=== PATIENT | male | born 1945 | race Caucasian/White ===

== ENCOUNTER 2016-06-05 01:33 | Inpatient (IN) | payer OTHER ==
[~2016-06-05] VITALS: Ht 180.3 cm; Wt 90.3 kg
[~2016-06-05 01:33] MED LIST: TRAMADOL HCL50 M1 PO
--- NOTE | 2016-06-05 10:10 | Admission Core Measures ---
Admission Meds I reviewed the following Meds: Current Medications Sig/Dora Start time Last Medication Dose Stop Time Status Admin Acetaminophen 975 MG ONCE 06/05 NR (Tylenol) 06/05 2358 Cefazolin Sodium 2,000 MG ONCE 06/05 NR (Kefzol-Ancef Inj) 06/05 2358 Oxycodone HCl 10 MG ONCE 06/05 0000 NR (Roxicodone) 06/05 2358 Ropivacaine 500 ML ONCE ONE 06/05 08 AC (NAROPIN) 06/07 0209 ON-Q Ball 1 BAG Acute Coronary Syndrome Inclusion Criteria ACS Diagnosis No Inpatient Core Measures LDL Reminder: If No, please order W/I first 24hr of stay Congestive Heart Failure Inclusion Criteria CHF Diagnosis No Cerebrovascular accident Inclusion Criteria CVA/TIA Diagnosis No Inpatient Core Measures Bedside Swallow Eval Reminder: If BSE failed, place ST order Antithrombotic Reminder: Order Antithrombotic Medication by end of day 2 Antithrombotic Reminder: Document Reason Antithrombotic Not ordered by end of day 2 AFIB/Flutter Reminder: If Present, add to problem list AFIB/Flutter Reminder: Order Anticoag Medication for pts with AFIB/Flutter Atherosclerosis Reminder: If Present, add to problem list LDL Reminder: If No, please order W/I first 24hr of stay PT Order Reminder: If No, please order Venous thromboembolism Inpatient Core Measures VTE Risk Factors: Age > 40, Surgery VTE Prophylaxis Ordered Inpt Mech & Pharm No Mech VTE prophylaxis d/t No contraindications No VTE Pharm Prophylaxis d/t No contraindications Inclusion Criteria - Per Current guidelines, there needs to be overlap - treatment for the first 5 days of Warfarin therapy. - Parenteral Anticoagulation (IV or SC) needs to be - given along with Warfarin therapy. VTE Diagnosis No VTE Type NONE VTE Confirmed by (Test) NONE Problem List As ranked by this Provider includes Assessment & Plan 1. Unilateral primary osteoarthritis, right knee HOME MEDS Home Med List Tramadol HCl 50 MG TABLET 1 TAB PO EVERY 6 PRN PAIN (Reported)
[2016-06-05] MEDS ORDERED: MIRALAX17 G1 PO (10:13)
[2016-06-05] MEDS ORDERED: COLACE100 M1 PO (10:13)
[2016-06-05] MEDS ORDERED: ASPIRIN EC325 M2 PO (10:13)
[2016-06-05] MEDS ORDERED: PRILOSEC OTC20 M1 PO (10:13)
[2016-06-05] MEDS ORDERED: MS CONTIN30 M1 PO (10:13)
[2016-06-05] MEDS ORDERED: DILAUDID4 M1 PO (10:13)
--- NOTE | 2016-06-05 10:17 | Patient Discharge Instructions ---
Discharge Instructions General Discharge Information You were seen/treated for: Right knee pain You had these procedures: Right total knee replacement Watch for these problems: Increasing pain, redness, warmth, swelling. Drainage of any type from incision. Inability to bear weight on right leg. Fever greater than 101.5. Do not soak the wound: Yes No bath, but you may shower: Yes Other wound care: Keep wound clean and dry Special Instructions: Incision: Dry dressing. May shower. No baths. No ointments of any kind. Ice as needed. Bowel regimen: Colace and or MiraLAX Weight-bearing as tolerated Follow-up with Dr. Bernal in 6 weeks. Call office for fevers greater than 101.5, excessive drainage or inability to bear weight on operative extremity. Visiting nurse will change dressing. Diet Continue normal diet: Yes Recommended Diet: Regular Additional DIET Information: Advance as tolerated Activity Full Activity/No Limits: No Activity Self Limited: Yes Pounds, do NOT lift more than: 10 Additional ACTIVITY Info: Weight-bear as tolerated Acute Coronary Syndrome Inclusion Criteria At DC or during hospital stay patient has or had the following: ACS DIAGNOSIS No Discharge Core Measures Meds if any: Prescribed or Continued at Discharge Meds if any: NOT Prescribed or Continued at Discharge Congestive Heart Failure Inclusion Criteria At DC or during hospital stay patient has or had the following: CHF DIAGNOSIS No Discharge Core Measures Meds if any: Prescribed or Continued at Discharge Meds if any: NOT Prescribed or Continued at Discharge Cerebrovascular accident Inclusion Criteria At DC or during hospital stay patient has or had the following: CVA/TIA Diagnosis No Discharge Core Measures Meds if any: Prescribed or Continued at Discharge Meds if any: NOT Prescribed or Continued at Discharge Venous thromboembolism Inclusion Criteria VTE Diagnosis No VTE Type NONE VTE Confirmed by (Test) NONE Discharge Core Measures - Per Current guidelines, there needs to be overlap - treatment for the first 5 days of Warfarin therapy. - If discharged on Warfarin prior to 5 days of - overlap therapy, the patient will need to be - assessed for post discharge needs including - *Post discharge parental anticoagulation - *Warfarin and/or parental anticoagulation education - *Follow up date to check INR post discharge At least 5 days overlap therapy as Inpatient No Meds if any: Prescribed or Continued at Discharge Note: Overlap Therapy is Warfarin and Anticoagulant Meds if any: NOT Prescribed or Continued at Discharge
--- NOTE | 2016-06-05 10:19 | Surgical Discharge Summary ---
Visit Information Visit Dates Admission Date: 06/05/16 Discharge Date: 06/08/2016 History of Present Illness Chief Complaint: Right knee pain Medical History Isolation History: Standard Surgical History Pertinent Surgical History: non-contributory Review of Systems: See H&P Hospital Course Course Attending Physician: ADAM TRAN MD Primary Care Physician: JOSE DAVID SUTHERLAND,[facility] Course: Patient was admitted to the hospital on 06/05/2016 for an elective right total knee replacement. He tolerated the procedure well. He was transferred to a general surgical floor. His diet was advanced and tolerated. His vitals were stable and within normal limits. He voided spontaneously. His pain was well controlled. He was evaluated and treated by physical therapy. He was deemed appropriate for discharge. Allergies: Coded Allergies: No Known Allergies (05/31/16) Disposition Summary Disposition Principal Diagnosis: Right knee unilateral primary osteoarthritis Additional Diagnosis: None Discharge Disposition: home health services Discharge Instructions General Discharge Information Code Status: Full Code Patient's Diet: Regular, advance as tolerated Patient's Activity: Weight-bear as tolerated on right leg Follow-Up Instructions/Appts: Incision: Dry dressing. May shower. No baths. No ointments of any kind. Ice as needed. Bowel regimen: Colace and or MiraLAX Weight-bearing as tolerated Follow-up with Dr. Tran in 6 weeks. Call office for fevers greater than 101.5, excessive drainage or inability to bear weight on operative extremity. Visiting nurse will change dressing. Medications at Discharge Discharge Medications: Stop taking the following medications: Tramadol HCl (Tramadol HCl) 50 MG TABLET ORAL EVERY 6 as needed for PAIN Start taking the following new medications: Docusate Sodium (Colace) 100 MG CAPSULE 1 Capsule ORAL TWICE DAILY Qty = 14 No Refills Instructions: DISCONTINUE USE IF YOU DEVELOP LOOSE STOOL OR DIARRHEA Polyethylene Glycol 3350 (Miralax) 17 GRAM POWD.PACK 1 Packet ORAL DAILY Qty = 7 No Refills Instructions: dissolve in water, DISCONTINUE USE IF YOU DEVELOP LOOSE STOOL OR DIARRHEA Aspirin (Ecotrin*) 325 MG TABLET.DR 1 Tablet ORAL TWICE DAILY Qty = 60 No Refills Omeprazole Magnesium (Prilosec Otc) 20 MG TABLET.DR 1 Tablet ORAL DAILY Qty = 30 No Refills Hydromorphone HCl (Dilaudid) 2 MG TABLET 1-2 Tablet ORAL EVERY 4-6 HOURS as needed for PAIN Qty = 36 No Refills Morphine Sulfate (Ms Contin) 15 MG TABLET.ER 1 Tablet ORAL THREE TIMES DAILY Qty = 9 No Refills
[2016-06-05 14:00] VITALS: BP 120/7
--- NOTE | 2016-06-05 15:26 | PN- Orthopedic ---
Subjective Subjective: POST-OP NOTE: Reports right knee discomfort is exactly what he expected. Already out of bed with PT ambulating and now sitting in chair. No dizziness. No shortness of breath. No chest pains. Tolerating clears. No nausea. Due to void this afternoon. Objective Vital Signs and I&Os vitals stable (pacu sheet reviewed) Physical Exam: General - alert & oriented x 3. out of bed to chair. no acute distress. Lungs - clear bilaterally. no w/r/r. Cardiac - s1s2. reg. Abdomen - soft. nontender. Extremities - warm bilaterally. right knee dressing c/d/i. on q in place. calves soft and nontender. nvi. Assessment/Plan Assessment/Plan This 70 year old white male is POD#0 s/p right total knee replacement advance diet as tolerated d/c iv fluids in the morning as long as voiding well continue PT, wbat on q in place, until POD#2 pain control as ordered antonio-operative ancef x 2 doses asa bid - dvt ppx due to void this afternoon will d/w Core Measures/Miscellaneous Venous Thromboembolism VTE Risk Factors: Age > 40, Surgery VTE Contraindications: No Contraindications VTE Prophylaxis Ordered Inpt: Mech & Pharm VTE Diagnosis: No VTE Type: NONE VTE Confirmed by (Test): NONE Beta Nelsy Is Beta Nelsy a Home Med? No Antibiotics Is Patient on Antibiotics? Yes If Yes: prophylaxis
--- NOTE | 2016-06-05 16:15 | Operative Report ---
Operative/Inv Procedure Report Surgery Date: 06/05/16 Name of Procedure: 1. Right total knee replacement 2. Left knee cortisone injection Pre-Operative Diagnosis: Primary bilateral knee DJD Post-Operative Diagnosis: Same Estimated Blood Loss: 50ml to 100ml Surgeon/Wind Turbine Mechanical Engineer: CHELSEA SUTHERLAND,ADAM Perdomo Anesthesia: block Operative/Procedure Note Note: Description of Procedure: The patient was taken to the operating room and positively identified. After induction of spinal anesthesia and administration of appropriate pre-operative antibiotics, the patient was positioned supine on the operating room table and all bony prominences were well padded. The left knee was prepped sterilely and injected with a mixture of 2 mL of Depo-Medrol and 8 mL of half percent Marcaine. A Band-Aid was placed over the injection site. Attention was then turned to the contralateral limb. A well-padded pneumatic tourniquet was placed on the right upper thigh. After performing a surgical timeout, the right lower extremity was prepped and draped in the usual sterile fashion. After exsanguination with Esmarch the tourniquet was inflated to 250mm of mercury. A standard medial parapatellar approach was made to the knee. This was carried down through skin and subcutaneous tissue to the level of the fascia. Meticulous hemostasis was maintained with Bovie electrocautery. The extensor mechanism and patellar retinaculum were opened sharply and the patella was everted. The infrapatellar fat was resected in order to improve exposure. Osteophytes were trimmed from the patella and femoral condyles and the patella was re-everted and tucked laterally. A medial release was performed and the cruciate ligaments were resected. The tibia was then subluxed anteriorly. Utilizing the appropriate extra-medullary guide, the proximal tibia was trimmed perpendicular to the long axis of the tibial shaft. Attention was then turned to the femur. After opening the medullary canal, the distal femoral cut was made in 6 degrees of valgus utilizing the appropriate intra-medullary guide. The extension gap was checked and found to be appropriate. The femur was then sized and the remainder of the femoral cuts were made with a size 6 4-in-1 femoral cutting guide. The flexion gap was checked and found to be symmetric and appropriate. The knee was then trialed with a size 6 femoral component, a size 6 tibial component and a size 13 mm polyethylene insert. The patella was trimmed to accept an A 38 patella. This yielded excellent range of motion, stability and patellar tracking. All trial components were removed and the knee was copiously irrigated with sterile saline. All components were cemented into place with Susan Simplex cement. All the components were of the Honk Triathlon knee system of the above stated sizes. The knee was again irrigated after cementation. The extensor mechanism and patellar retinaculum were repaired using interrupted #1 vicryl suture. The skin was re-approximated with 2-0 vicryl and closed with nati. A sterile dressing was applied, the tourniquet was deflated, the patient was awakened and taken to the recovery room in satisfactory condition.
[2016-06-05 18:00] VITALS: BP 118/64
[2016-06-05 23:07] VITALS: BP 112/62
[2016-06-06 07:50] VITALS: BP 118/72
[2016-06-06 08:01] LABS: ABSOLUTE BASOPHIL COUNT 0 /CUMM (0.0-0.2); ABSOLUTE EOSINOPHIL COUNT 0 /CUMM (0.0-0.7); ABSOLUTE GRANULOCYTE CT 13.6 /CUMM (1.4-6.5); ABSOLUTE LYMPH COUNT 0.6 /CUMM (1.2-3.4); BASOPHIL % 0.2 % (0.0-2.0); EOSINOPHIL % 0 % (0-5); GRANULOCYTE % 89.4 % (42.2-75.2); HEMATOCRIT 37.6 % (42-52); MEAN CORPUSCULAR HGB 30.6 PG (27.0-31.0); MEAN CORPUSCULAR HGB CONC 34.5 G/DL (33.0-37.0); MEAN CORPUSCULAR VOLUME 88.7 FL (80.0-94.0); MEAN PLATELET VOLUME 7.6 FL (7.4-10.4); PLATELET COUNT 240 /CUMM (130-400); RBC DISTRIBUTION WIDTH 13.7 % (11.5-14.5); RED BLOOD CELL CT 4.24 /CUMM (4.70-6.10)
--- NOTE | 2016-06-06 09:23 | PN- Orthopedic ---
Subjective Subjective: t. reports having pain now and overnight, however was able to participate with PT this morning Otherwise has no complaints. Objective Vital Signs and I&Os Vital Signs Date Time Temp Pulse Resp B/P Pulse O2 O2 Flow FiO2 Ox Delivery Rate 06/06 0750 98.9 89 20 118/72 93 Room Air 06/05 2307 99.2 86 20 112/62 95 06/05 1800 98.2 80 20 118/64 95 Room Air 06/05 1400 98.8 84 120/7 95 Room Air Intake & Output 06/06 1600 06/06 0800 06/06 0000 06/05 1600 06/05 0800 06/05 0000 Intake Total 600 225 Output Total 375 475 Balance 225 -250 Intake, IV 600 225 Output, Urine 375 475 Patient 199 lb Weight Alert, no didtress, appropriate Lungs clear COR regular Abdominal exam is benign RLE with Seven bandage over extremity , intact. Has full ROM , OnQ pump intact, insertion site is clean. Good capillary refill distally No calf tenderness. Assessment/Plan Assessment/Plan s/p RTKA POD#1 Pain issue.He did not received oral pain meds. I discussed with pt. and nurse to initiate oral Dilaudid. Will add oral MS Contin bid as per surgeon's plan. No signs of infection Mobilze with PT I anticipate removal of On Q pump tomorrow. Tolerating solid diet , will d/c IVF Core Measures/Miscellaneous Venous Thromboembolism VTE Risk Factors: Age > 40, Surgery VTE Contraindications: No Contraindications VTE Prophylaxis Ordered Inpt: Mech & Pharm VTE Diagnosis: No VTE Type: NONE VTE Confirmed by (Test): NONE Beta Nelsy Is Beta Nelsy a Home Med? No Antibiotics Is Patient on Antibiotics? No If Yes: prophylaxis
[2016-06-06 09:47] LABS: WHITE BLOOD CELL COUNT 15.2 /CUMM (4.8-10.8)
[2016-06-06 12:00] VITALS: BP 112/68
[2016-06-06 14:34] VITALS: BP 124/72
[2016-06-06 16:36] VITALS: BP 128/72
[2016-06-06 22:49] VITALS: BP 128/74
--- NOTE | 2016-06-07 07:15 | PN- Orthopedic ---
Subjective Subjective: Patient reporting increasing pain to posterior aspect of right knee. Denies chest pain, shortness of breath and difficulty breathing. Denies nausea and vomiting. Has been voiding without difficulty. Has yet to move bowels. Objective Vital Signs and I&Os Vital Signs Date Time Temp Pulse Resp B/P Pulse O2 O2 Flow FiO2 Ox Delivery Rate 06/07 0734 99.5 65 20 136/80 95 Room Air 06/06 2249 99.9 78 20 128/74 95 03/02 1636 100.1 80 20 128/72 95 03/02 1434 98.8 74 20 124/72 98 Room Air 06/06 1200 98.4 84 20 112/68 94 Room Air Intake & Output 06/07 1600 06/07 0800 06/07 0000 06/06 1600 06/06 0800 06/06 0000 Intake Total 761 198 4345 600 225 Output Total 1225 525 750 375 475 Balance -985 -45 420 225 -250 Intake, IV 450 600 225 Intake, Oral 240 480 720 Number 0 Bowel Movements Output, Urine 1225 525 750 375 475 Physical Exam: General: Alert and oriented x3, no acute distress Cardiac: RRR, s1s2 Pulmonary: CTA bilaterally Abdomen: NOn-tender, non-distended Extremities: Moves all extremities, distal sensation intact. Motor 5/5 in plantar and dorsi flexion. Skin warm and well perfused. DP pulses palpable bilaterally. Right calf with swelling and tenderness to palpation Surgical site: Right knee, dressing changed, antonio-incisional bruising noted, skin edges well approximated, no drainage Assessment/Plan Assessment/Plan This is a 70 year old male, POD 2, s/p right total knee replacement -Continue current pain regimen -Ultrasound to be done bilateral lower extremities to r/o dvt -Consider d/c to home pending u/s Core Measures/Miscellaneous Venous Thromboembolism VTE Risk Factors: Age > 40, Surgery VTE Contraindications: No Contraindications VTE Diagnosis: No VTE Type: NONE VTE Confirmed by (Test): NONE Beta Nelsy Is Beta Nelsy a Home Med? No Antibiotics Is Patient on Antibiotics? No If Yes: prophylaxis
[2016-06-07 07:34] VITALS: BP 136/80
--- NOTE | 2016-06-07 09:13 | NUR ---
NURSING NOTE: PATIENT LEFT FLOOR VIA STRETCHER WITH DISTRIBUTION FOR ULTRASOUND. PATIENT A/OX3, PAIN 5/10 WITH MEDICATION GIVEN. DRSG TO R KNEE CDI. RIGHT CALF SWELLING, WARMTH AND PAINFUL TO TOUCH NOTED. WILL AWAIT RETURN.
--- NOTE | 2016-06-07 09:50 | NUR ---
NURSING NOTE: PATIENT RETURNED TO FLOOR VIA STRTCHER WITH DISTRIBUTION FROM ULTRASOUND. PATIENT A/OX3, PAIN 6/10, ICE PLACED. WILL CONTINUE TO MONITOR.
--- NOTE | 2016-06-07 09:51 | ULTRASOUND REPORT ---
EXAMINATION: US TRIPLEX LOWER EXTREMITY, BILATERAL CLINICAL INFORMATION: Calf swelling and tenderness postoperative COMPARISON: None TECHNIQUE: Color-flow triplex imaging with spectral analysis and compression Doppler were performed on the bilateral lower extremities. FINDINGS: Respiratory variation, normal compression and augmented flow are noted throughout the bilateral lower extremities. The visualized common femoral vein, superficial femoral vein, profunda femoral vein, popliteal vein and midcalf peroneal and posterior tibial venous segments show no evidence of deep venous thrombosis. There is no Billings's cyst. There is calf edema noted. IMPRESSION: No evidence of deep venous thrombosis involving the bilateral lower extremities.
--- NOTE | 2016-06-07 11:47 | NUR ---
NURSING NOTE: PATIENT C/O PAIN 12/15 TO R THIGH. PATIENT WAS ATTEMPTING TO GET OUT OF BED WITH PT AT TIME. STATED HE COULD NOT BARE WEIGHT TO THE LEG HE WANTED TO, DUE TO THE PAIN IN THE THIGH. PATIENT ALSO STATED IT FELT NUMB. THE THIGH WAS COLD TO TOUCH AND PATIENT HAD ICE PACK ON THE AREA PRIOR. PATIENT EDUCATED ABOUT 20 MINS ON 20 MINS OFF FOR ICE PACK AND GIVEN PAIN MEDS PER ORDER. SURGICAL CLARI MORALES NOTIFIED. WILL CONTINUE TO MONITOR.
[2016-06-07] MEDS ORDERED: MS CONTIN15 M2 PO (14:11)
[2016-06-07] MEDS ORDERED: DILAUDID2 M1 PO (14:11)
[2016-06-07 15:01] VITALS: BP 126/64
[2016-06-07 23:03] VITALS: BP 118/60
[2016-06-08 07:52] VITALS: BP 130/78
--- NOTE | 2016-06-08 09:51 | PN- Orthopedic ---
Subjective Subjective: No complaints. Reports pain controlled. Out of bed with PT without difficulty. No dizziness. No shortness of breath. Voiding well. Venous ultrasound study negative for dvts yesterday (b/l legs). Objective Vital Signs and I&Os Vital Signs Date Time Temp Pulse Resp B/P Pulse O2 O2 Flow FiO2 Ox Delivery Rate 06/08 0752 99.1 69 18 130/78 96 Room Air 06/07 2303 99.9 68 20 118/60 93 Room Air 06/07 1501 100.0 68 20 126/64 94 Room Air Intake & Output 06/08 1600 06/08 0800 06/08 0000 06/07 1600 06/07 0800 06/07 0000 Intake Total 200 200 900 240 480 Output Total 261 467 6030 525 Balance 200 -200 300 -985 -45 Intake, Oral 200 200 900 240 480 Output, Urine 313 756 2128 525 Physical Exam: General - alert & oriented x 3. comfortable. no acute distress. Lungs - clear bilaterally. no w/r/r. Cardiac - s1s2. reg. Abdomen - soft nontender. Extremities - warm bilaterally. no c/c/e. right knee incision well approximated with nati. no erythema or exudates. nvi. Assessment/Plan Assessment/Plan This is a 70 year old male POD#3 s/p right total knee replacement, venous ultrasound study negative for dvts b/l legs yesterday tolerating diet pain controlled oob/ambulating with rolling walker continue PT dressing changed asa - dvt ppx d/c home today will d/w Core Measures/Miscellaneous Venous Thromboembolism VTE Risk Factors: Age > 40, Surgery VTE Contraindications: No Contraindications VTE Diagnosis: No VTE Type: NONE VTE Confirmed by (Test): NONE Beta Nelsy Is Beta Nelsy a Home Med? No Antibiotics Is Patient on Antibiotics? No If Yes: prophylaxis
--- NOTE | 2016-06-08 11:07 | NUR ---
NURSING NOTE: PATIENT LEFT FLOOR VIA WCWITH DISTRIBUTION AND SPOUSE TO HOME WITH HEALTH SERVICES. PATIENT DENIES PAIN AT DISCHARGE. IV DISCONTINUED. ALL BELONGINGS LEFT WITH PATIENT. PRESCRIPTIONS PICKED UP FROM PHARMACY UPON DISCHARGE.
== END 2016-06-08 11:07 | disposition home health service (06) | DRG 470 ==
LOC: ENRESERVDT → ENRESERVTM → 2NB 01:33 → SDA 01:33 → ENPENDDIS 01:33 → 2NB 13:47
PROVIDERS: Nurse Practitioner; ADMIT Orthopaedic Surgery
PROC: 3E0U3BZ Introduction of Anesthetic Agent into Joints, Percutaneous Approach (ICD-10-PCS; principal; 2016-06-05)
PROC: 0SRC0J9 Replacement of Right Knee Joint with Synthetic Substitute, Cemented, Open Approach (ICD-10-PCS; principal; 2016-06-05)
PROC: 3E0U33Z Introduction of Anti-inflammatory into Joints, Percutaneous Approach (ICD-10-PCS; principal; 2016-06-05)
DX: M17.0 Bilateral primary osteoarthritis of knee (principal); E78.5 Hyperlipidemia, unspecified; R03.0 Elevated blood-pressure reading, without diagnosis of hypertension
CPT/HCPCS: 2NBSP; 82436; 88305; 93970; 97110-GO; 97116-GO; 97161-GP; 97530-GO; C1713; J0690; J1030; J1885; J2405; J2550; J2795; J7042